=== PATIENT | male | born 1955 | race Caucasian/White ===

== ENCOUNTER → 2016-05-27 | Outpatient (CLI) | payer BC ==
[~2016-05-27] MED LIST: ASPIRIN325 M2 PO; ATORVASTATIN CA80 M1 PO; BACTRIM DS 8001 TA1 PO; KEFLEX500 MG PO; METOPROLOL SUCC25 M2 PO; NORCO 5-325 TA1 EACH PO
== END | disposition home or self-care (01) ==
LOC: US 07:22
DX: R30.9 Painful micturition, unspecified (principal); R10.13 Epigastric pain; R10.11 Right upper quadrant pain

== ENCOUNTER → 2021-07-10 | Outpatient (CLI) | payer BC ==
[~2021-07-10] MED LIST changes: +ASPIRIN81 M1 PO; +TOPROL XL25 MG PO
== END | disposition home or self-care (01) ==
LOC: CARD 00:08
PROVIDERS: ATTEND Internal Medicine Cardiovascular Disease
DX: I25.10 Atherosclerotic heart disease of native coronary artery without angina pectoris (principal); E78.5 Hyperlipidemia, unspecified; R07.89 Other chest pain